=== PATIENT | male | born 1940 | race Two or more races ===

== ENCOUNTER 2023-05-07 10:38 | Inpatient (IN) | payer MEDICARE, OTHER ==
[~2023-05-07] VITALS: Ht 162.6 cm; Wt 73.5 kg
[2023-05-07 11:27] LABS: Basophils # (auto) 0.1 10 ^3/uL (0-0.2); Basophils % (auto) 1.3 % (0.0-2.0); Eosinophils # (auto) 0.2 10 ^3/uL (0-0.8); Eosinophils % (auto) 4.7 % (0.0-7.0); Hematocrit 32.1 % (41.0-53.0); Hemoglobin 10.5 g/dL (13.5-17.5); Lymphocytes # (auto) 0.6 10 ^3/uL (0.4-5.4); Lymphocytes % (auto) 11.1 % (10.0-50.0); Mean Corpuscular Hemoglobin 32.3 pg (28.0-32.0); Mean Corpuscular Hgb Conc. 32.6 g/dL (32.0-36.0); Monocytes # (auto) 0.6 10 ^3/uL (0-1.3); Monocytes % (auto) 11.3 % (0.0-12.0); Neutrophils # (auto) 3.7 10 ^3/uL (1.6-8.6); Neutrophils % (auto) 71.6 % (37.0-80.0); Nucleated Red Blood Cells % 0.3 %; Red Blood Cells 3.25 10^6/uL (4.5-5.90); Red Cell Distribution Width 18.6 % (11.8-14.3); White Blood Cell 5.2 10^3/uL (4.4-10.8)
[2023-05-07 11:43] LABS: Alanine Aminotransferase 20 U/L (7-40); Albumin 3.5 g/dL (3.2-4.8); Alkaline Phosphatase 282 U/L (46-116); Anion Gap 6.7 (5-15); Aspartate Aminotransferase 26 U/L (13-40); BUN/Creatinine Ratio 7.5 (10.0-20.0); Blood Urea Nitrogen 38 mg/dL (9-23); Calcium 8.6 mg/dL (8.7-10.4); Carbon Dioxide 33.3 mmol/L (20-30); Chloride 95 mmol/L (98-107); Glucose 122 mg/dL (74-106); Sodium 135 mmol/L (136-145)
[2023-05-07 11:44] LABS: Bilirubin, Total 1.1 mg/dL (0.2-1.0); Total Protein 8.1 g/dL (5.7-8.2)
[2023-05-07] MEDS ORDERED: NITROGLYCERIN 0.4 MG SL TAB SL PRN (15:45)
[2023-05-07] MEDS ORDERED: MORPHINE SULFATE 4 MG/ML SYR/VIAL IV PRN (15:45)
[2023-05-07] MEDS ORDERED: ONDANSETRON HCL 4 MG/2 ML VIAL IV PRN ×2 (15:45)
[2023-05-07] MEDS ORDERED: DOCUSATE SOD 100 MG CAP PO PRN (15:45)
[2023-05-07 16:53] LABS: INR 1.26 (0.9-1.15)
[2023-05-07 18:03] LABS: Blood Alcohol < 3.0 mg/dL (<10)
[2023-05-07 18:33] LABS: Triglycerides 71 mg/dL (< 150)
[2023-05-07 18:34] LABS: LDL Cholesterol 74 mg/dL (< 100)
[2023-05-07 18:35] LABS: HDL Cholesterol 65 mg/dL (40-59)
[2023-05-07 19:03] LABS: Cholesterol 153 mg/dL (< 200)
[2023-05-07 20:20] VITALS: PULSE 78; RESP 18; O2SAT 97
[2023-05-07] MEDS: FUROSEMIDE 20 MG/2 ML VIAL IV SCH (21:36)
[2023-05-07] MEDS: ATORVASTATIN 20 MG TAB PO SCH (22:00)
[2023-05-07] MEDS ORDERED: METOPROLOL TARTRATE 25 MG TAB PO SCH (22:00)
[2023-05-07] MEDS: MORPHINE SULFATE INJ 2 MG/ml SYRG IV PRN (23:51)
[2023-05-08 06:07] LABS: Basophils # (auto) 0.1 10 ^3/uL (0-0.2); Eosinophils # (auto) 0.3 10 ^3/uL (0-0.8); Eosinophils % (auto) 6.1 % (0.0-7.0); Hematocrit 29.3 % (41.0-53.0); Hemoglobin 9.6 g/dL (13.5-17.5); Lymphocytes # (auto) 0.7 10 ^3/uL (0.4-5.4); Lymphocytes % (auto) 11.4 % (10.0-50.0); Mean Corpuscular Hemoglobin 32.6 pg (28.0-32.0); Mean Corpuscular Volume 98.8 fL (80.0-100.0); Monocytes % (auto) 17.4 % (0.0-12.0); Neutrophils # (auto) 3.7 10 ^3/uL (1.6-8.6); Neutrophils % (auto) 64.1 % (37.0-80.0); Red Blood Cells 2.96 10^6/uL (4.5-5.90); Red Cell Distribution Width 18.8 % (11.8-14.3); White Blood Cell 5.7 10^3/uL (4.4-10.8)
[2023-05-08 06:25] LABS: Alanine Aminotransferase 24 U/L (7-40); Albumin 3.2 g/dL (3.2-4.8); Alkaline Phosphatase 298 U/L (46-116); Aspartate Aminotransferase 31 U/L (13-40); BUN/Creatinine Ratio 8.9 (10.0-20.0); Calcium 8.4 mg/dL (8.7-10.4); Chloride 98 mmol/L (98-107); Glucose 90 mg/dL (74-106); Potassium 4.5 mmol/L (3.5-5.1); Sodium 137 mmol/L (136-145)
[2023-05-08 06:26] LABS: Bilirubin, Total 0.8 mg/dL (0.2-1.0); Total Protein 7.7 g/dL (5.7-8.2)
[2023-05-08 06:29] LABS: Blood Urea Nitrogen 53 mg/dL (9-23)
[2023-05-08 06:39] LABS: Amphetamine Screen, Urine Neg (NEGATIVE); Urine Bacteria NONE SEEN /hpf (None Seen); Urine Blood 1+ /uL (Negative); Urine Clarity CLOUDY (Clear); Urine Color Yellow (Yellow); Urine Mucus FEW (None Seen); Urine Protein, UAD 2+ (Negative); Urine Specific Gravity 1.014 (1.001-1.035); Urine WBC 211 /hpf (0 - 3); Urine WBC Clumps PRESENT /hpf (None Seen); Urine pH 8.5 (5.0-8.0)
[2023-05-08 06:40] LABS: Barbiturate Scree,Urine Neg (NEGATIVE); Benzodiazephine Screen, Urine Neg (NEGATIVE); Cannabinoid Screen, Urine Neg (NEGATIVE); Cocaine Screen, Urine Neg (NEGATIVE); Opiate Scree,Urine Neg (NEGATIVE); Phencyclidine Screen, Urine Neg (NEGATIVE)
[2023-05-08] MEDS: FUROSEMIDE 20 MG/2 ML VIAL IV SCH ×2 (06:58→17:30)
[2023-05-08 07:52] VITALS: PULSE 61; RESP 10; O2SAT 98
[2023-05-08 07:56] LABS: COVID19 ANTIGEN SOFIA FIA NEGATIVE (NEGATIVE)
[2023-05-08] MEDS ORDERED: DOCUSATE SOD 100 MG CAP PO SCH (10:00)
[2023-05-08] MEDS: ASPirin 81 mg TAB PO SCH ×2 (10:22→10:39)
[2023-05-08] MEDS ORDERED: ETOMIDATE (2MG/ML) 20ML VIAL IV ONE (10:30)
[2023-05-08] MEDS ORDERED: MIDAZOLAM DRIP 50 mg/50mL 50 ML IV SCH (10:30)
[2023-05-08] MEDS ORDERED: SUCCINYLCHOLINE CHLORIDE 20 MG/ML 10ML VIAL IV ONE (10:30)
[2023-05-08 10:46] LABS: Base Excess 6.5 mmol/L (-2.0-2.0)
[2023-05-08 15:41] LABS: Protein, Urine 215.3 mg/dL (0.0-11.9)
[2023-05-08 15:44] LABS: Creatinine, Urine 69.37 mg/dL (30.0-125.0)
[2023-05-08] MEDS ORDERED: SODIUM CHL 0.9% 1000 ML BAG XX ONE (16:15)
[2023-05-08] MEDS ORDERED: FAMOTIDINE (10MG/ML) 2ML VL IV ONE (16:30)
[2023-05-08] MEDS ORDERED: cefTRIAXone 1GM/50ML D5W 50 ML IV ONE (16:30)
[2023-05-08 17:00] VITALS: BP 124/68; PULSE 67; RESP 18; TEMP 97.6; O2SAT 96
[2023-05-08 17:07] VITALS: PULSE 68; O2SAT 99
[2023-05-08 20:00] VITALS: PULSE 71
[2023-05-08] MEDS: SACUBITRIL-VALSARTAN 24mg/26mg TAB PO SCH (21:34)
[2023-05-08 22:00] VITALS: BP 115/49; PULSE 69; RESP 16; TEMP 98.1; O2SAT 100
[2023-05-08 22:16] LABS: Rapid Influenza A Negative (Negative); Rapid Influenza B Negative (Negative)
[2023-05-08] MEDS: ATORVASTATIN 20 MG TAB PO SCH (22:18)
[2023-05-09 05:00] VITALS: BP 107/49; PULSE 74; RESP 17; TEMP 98.4; O2SAT 90
[2023-05-09] MEDS: FUROSEMIDE 20 MG/2 ML VIAL IV SCH (06:00)
[2023-05-09 06:04] LABS: Basophils # (auto) 0.1 10 ^3/uL (0-0.2); Eosinophils # (auto) 0.3 10 ^3/uL (0-0.8); Eosinophils % (auto) 4.7 % (0.0-7.0); Hematocrit 28.8 % (41.0-53.0); Hemoglobin 9.4 g/dL (13.5-17.5); Lymphocytes # (auto) 0.5 10 ^3/uL (0.4-5.4); Lymphocytes % (auto) 8.4 % (10.0-50.0); Mean Corpuscular Hemoglobin 32.9 pg (28.0-32.0); Mean Corpuscular Hgb Conc. 32.7 g/dL (32.0-36.0); Mean Corpuscular Volume 100.7 fL (80.0-100.0); Monocytes # (auto) 0.7 10 ^3/uL (0-1.3); Monocytes % (auto) 10.9 % (0.0-12.0); Neutrophils # (auto) 4.6 10 ^3/uL (1.6-8.6); Nucleated Red Blood Cells % 0.1 %; Red Blood Cells 2.86 10^6/uL (4.5-5.90); White Blood Cell 6.1 10^3/uL (4.4-10.8)
[2023-05-09 06:16] LABS: Alanine Aminotransferase 20 U/L (7-40); Albumin 3.1 g/dL (3.2-4.8); Alkaline Phosphatase 265 U/L (46-116); Anion Gap 8.2 (5-15); Aspartate Aminotransferase 25 U/L (13-40); BUN/Creatinine Ratio 9.2 (10.0-20.0); Blood Urea Nitrogen 51 mg/dL (9-23); Calcium 8.5 mg/dL (8.5-10.1); Carbon Dioxide 30.8 mmol/L (20-30); Chloride 99 mmol/L (98-107); Glucose 92 mg/dL (74-106); Magnesium 1.8 mg/dL (1.6-2.6); Potassium 4.4 mmol/L (3.5-5.1); Sodium 138 mmol/L (136-145); Uric Acid 5.8 mg/dL (3.7-9.2)
[2023-05-09 06:17] LABS: Bilirubin, Total 0.8 mg/dL (0.2-1.0); Phosphorus 4.6 mg/dL (2.4-5.1); Total Protein 7.5 g/dL (5.7-8.2)
[2023-05-09 08:00] VITALS: BP 102/43; PULSE 66; PULSE 73; RESP 18; TEMP 98.1; O2SAT 93
[2023-05-09] MEDS: SACUBITRIL-VALSARTAN 24mg/26mg TAB PO SCH ×2 (09:44→22:06)
[2023-05-09] MEDS: B-COMPLEX W/ C & FOLIC ACID(NEPHROVITE TAB) PO SCH (09:44)
[2023-05-09] MEDS: cefTRIAXone 1GM/50ML D5W 50 ML IV SCH (09:44)
[2023-05-09] MEDS: ASPirin 81 mg TAB PO SCH (09:44)
[2023-05-09 12:00] VITALS: BP 110/57; PULSE 72; RESP 18; TEMP 97.8; O2SAT 100
[2023-05-09 16:00] VITALS: BP 107/53; PULSE 68; RESP 24; TEMP 97.9; O2SAT 100
[2023-05-09] MEDS: MORPHINE SULFATE INJ 2 MG/ml SYRG IV PRN ×2 (17:08→22:14)
[2023-05-09 20:00] VITALS: BP 102/43; PULSE 73; RESP 16; RESP 18; TEMP 98.1; O2SAT 95
[2023-05-09 22:00] VITALS: BP 120/60; PULSE 69; RESP 16; TEMP 97.6; O2SAT 98
[2023-05-09] MEDS: ATORVASTATIN 20 MG TAB PO SCH (22:06)
[2023-05-10] VITALS (10 sets, daily range): BP systolic 97–117; BP diastolic 47–66; PULSE 63–74; RESP 14–20; TEMP 97.4–98.3; O2SAT 90–100
[2023-05-10] MEDS ORDERED: SODIUM CHL 0.9% 1000 ML BAG XX ONE (07:00)
[2023-05-10 07:32] LABS: Basophils # (auto) 0.1 10 ^3/uL (0-0.2); Eosinophils # (auto) 0.3 10 ^3/uL (0-0.8); Eosinophils % (auto) 5.6 % (0.0-7.0); Hematocrit 26.8 % (41.0-53.0); Lymphocytes # (auto) 0.7 10 ^3/uL (0.4-5.4); Lymphocytes % (auto) 11.8 % (10.0-50.0); Mean Corpuscular Hemoglobin 32.9 pg (28.0-32.0); Mean Corpuscular Hgb Conc. 33.6 g/dL (32.0-36.0); Monocytes # (auto) 0.9 10 ^3/uL (0-1.3); Monocytes % (auto) 14.2 % (0.0-12.0); Neutrophils # (auto) 4.1 10 ^3/uL (1.6-8.6); Neutrophils % (auto) 67.4 % (37.0-80.0); Nucleated Red Blood Cells % 0.1 %; Red Blood Cells 2.73 10^6/uL (4.5-5.90); Red Cell Distribution Width 17.6 % (11.8-14.3); White Blood Cell 6.1 10^3/uL (4.4-10.8)
[2023-05-10 08:02] LABS: Alanine Aminotransferase 16 U/L (7-40); Albumin 2.9 g/dL (3.2-4.8); Alkaline Phosphatase 267 U/L (46-116); Aspartate Aminotransferase 22 U/L (13-40); BUN/Creatinine Ratio 7.6 (10.0-20.0); Bilirubin, Total 0.6 mg/dL (0.2-1.0); Blood Urea Nitrogen 53 mg/dL (9-23); Chloride 100 mmol/L (98-107); Glucose 93 mg/dL (74-106); Potassium 4.3 mmol/L (3.5-5.1); Sodium 138 mmol/L (136-145); Total Protein 7.1 g/dL (5.7-8.2)
[2023-05-10] MEDS: SACUBITRIL-VALSARTAN 24mg/26mg TAB PO SCH ×2 (13:09→21:56)
[2023-05-10] MEDS: ASPirin 81 mg TAB PO SCH (13:09)
[2023-05-10] MEDS: ACETAMINOPHEN 325 MG TAB PO PRN (13:09)
[2023-05-10] MEDS: B-COMPLEX W/ C & FOLIC ACID(NEPHROVITE TAB) PO SCH (13:09)
[2023-05-10] MEDS: cefTRIAXone 1GM/50ML D5W 50 ML IV SCH (13:10)
[2023-05-10] MEDS: FAMOTIDINE (10MG/ML) 2ML VL IV SCH (16:49)
[2023-05-10] MEDS: MORPHINE SULFATE INJ 2 MG/ml SYRG IV PRN (16:50)
[2023-05-10] MEDS ORDERED: EPOETIN ALFA-EPBX 10,000 UNIT/1ML VIAL SC ONE (21:00)
[2023-05-10] MEDS: ATORVASTATIN 20 MG TAB PO SCH (21:02)
[2023-05-11 05:00] VITALS: BP 102/49; PULSE 71; RESP 19; TEMP 97.6; O2SAT 92
[2023-05-11 06:58] LABS: Basophils # (auto) 0.1 10 ^3/uL (0-0.2); Basophils % (auto) 1.5 % (0.0-2.0); Eosinophils # (auto) 0.4 10 ^3/uL (0-0.8); Eosinophils % (auto) 7.1 % (0.0-7.0); Hematocrit 29.7 % (41.0-53.0); Hemoglobin 9.8 g/dL (13.5-17.5); Lymphocytes # (auto) 0.6 10 ^3/uL (0.4-5.4); Lymphocytes % (auto) 11.7 % (10.0-50.0); Mean Corpuscular Hemoglobin 32.6 pg (28.0-32.0); Mean Corpuscular Hgb Conc. 33.1 g/dL (32.0-36.0); Mean Corpuscular Volume 98.2 fL (80.0-100.0); Monocytes # (auto) 0.7 10 ^3/uL (0-1.3); Monocytes % (auto) 13.9 % (0.0-12.0); Neutrophils # (auto) 3.4 10 ^3/uL (1.6-8.6); Neutrophils % (auto) 65.8 % (37.0-80.0); Nucleated Red Blood Cells % 0.1 %; Red Blood Cells 3.02 10^6/uL (4.5-5.90); Red Cell Distribution Width 17.1 % (11.8-14.3); White Blood Cell 5.2 10^3/uL (4.4-10.8)
[2023-05-11 07:32] LABS: Alanine Aminotransferase 16 U/L (7-40); Albumin 2.8 g/dL (3.2-4.8); Alkaline Phosphatase 251 U/L (46-116); Anion Gap 3.2 (5-15); Aspartate Aminotransferase 19 U/L (13-40); BUN/Creatinine Ratio 8.8 (10.0-20.0); Blood Urea Nitrogen 45 mg/dL (9-23); Calcium 7.9 mg/dL (8.7-10.4); Carbon Dioxide 30.8 mmol/L (20-30); Chloride 104 mmol/L (98-107); Glucose 85 mg/dL (74-106); Magnesium 1.8 mg/dL (1.6-2.6); Potassium 4.4 mmol/L (3.5-5.1); Sodium 138 mmol/L (136-145)
[2023-05-11 07:33] LABS: Bilirubin, Total 0.7 mg/dL (0.2-1.0)
[2023-05-11] MEDS: ACETAMINOPHEN 325 MG TAB PO PRN ×2 (07:33→17:21)
[2023-05-11 08:00] VITALS: BP 99/60; PULSE 69; PULSE 72; PULSE 73; RESP 12; RESP 18; TEMP 98.2; O2SAT 93; O2SAT 97
[2023-05-11] MEDS ORDERED: MEROPENEM 500MG IVPB 50 ML IV ONE (08:00)
[2023-05-11] MEDS: SACUBITRIL-VALSARTAN 24mg/26mg TAB PO SCH ×2 (09:00→22:05)
[2023-05-11] MEDS: B-COMPLEX W/ C & FOLIC ACID(NEPHROVITE TAB) PO SCH (09:00)
[2023-05-11] MEDS: ASPirin 81 mg TAB PO SCH (09:00)
[2023-05-11 11:08] LABS: Hepatitis B Surface Antigen Negative (Negative)
[2023-05-11 11:31] LABS: Hepatitis C Antibody Negative (Negative)
[2023-05-11 12:00] VITALS: BP 111/56; PULSE 80; RESP 18; TEMP 97.8; O2SAT 100
[2023-05-11] MEDS ORDERED: FUROSEMIDE 20 MG/2 ML VIAL IV SCH (13:30)
[2023-05-11 16:00] VITALS: BP 146/59; PULSE 80; RESP 22; TEMP 98.3; O2SAT 95
[2023-05-11 20:00] VITALS: PULSE 79
[2023-05-11 22:00] VITALS: BP 138/50; PULSE 75; RESP 19; TEMP 97.5; O2SAT 98
[2023-05-11] MEDS: ATORVASTATIN 20 MG TAB PO SCH (22:06)
[2023-05-12] MEDS: ACETAMINOPHEN 325 MG TAB PO PRN (01:57)
[2023-05-12 05:00] VITALS: BP 121/61; PULSE 69; RESP 19; TEMP 97.6; O2SAT 97
[2023-05-12 05:55] LABS: Basophils # (auto) 0.1 10 ^3/uL (0-0.2); Basophils % (auto) 1.4 % (0.0-2.0); Eosinophils # (auto) 0.4 10 ^3/uL (0-0.8); Hematocrit 30.6 % (41.0-53.0); Lymphocytes # (auto) 0.7 10 ^3/uL (0.4-5.4); Lymphocytes % (auto) 15.8 % (10.0-50.0); Mean Corpuscular Hemoglobin 32.3 pg (28.0-32.0); Mean Corpuscular Hgb Conc. 32.7 g/dL (32.0-36.0); Monocytes # (auto) 0.6 10 ^3/uL (0-1.3); Monocytes % (auto) 14.3 % (0.0-12.0); Neutrophils # (auto) 2.5 10 ^3/uL (1.6-8.6); Neutrophils % (auto) 58.5 % (37.0-80.0); Red Cell Distribution Width 17.9 % (11.8-14.3); White Blood Cell 4.3 10^3/uL (4.4-10.8)
[2023-05-12 06:11] LABS: Alanine Aminotransferase 18 U/L (7-40); Albumin 2.8 g/dL (3.2-4.8); Alkaline Phosphatase 260 U/L (46-116); Anion Gap 9.2 (5-15); Aspartate Aminotransferase 22 U/L (13-40); BUN/Creatinine Ratio 8.6 (10.0-20.0); Bilirubin, Total 0.5 mg/dL (0.2-1.0); Calcium 8.1 mg/dL (8.5-10.1); Carbon Dioxide 28.8 mmol/L (20-30); Chloride 104 mmol/L (98-107); Glucose 102 mg/dL (74-106); Magnesium 1.8 mg/dL (1.6-2.6); Potassium 4.5 mmol/L (3.5-5.1); Sodium 142 mmol/L (136-145)
[2023-05-12 06:16] LABS: Blood Urea Nitrogen 55 mg/dL (9-23)
[2023-05-12] MEDS ORDERED: SODIUM CHL 0.9% 1000 ML BAG XX ONE (07:00)
[2023-05-12 08:00] VITALS: BP 145/67; PULSE 71; PULSE 73; RESP 21; TEMP 97.5; O2SAT 96
[2023-05-12] MEDS ORDERED: FUROSEMIDE 20 MG/2 ML VIAL IV SCH (10:00)
[2023-05-12] MEDS ORDERED: ERTAPENEM SOD INJ 0.5 GM in SODIUM CHL 0.9% 50 ML IV SCH (10:00)
[2023-05-12] MEDS ORDERED: MEROPENEM 500MG IVPB 50 ML IV SCH (10:00)
[2023-05-12 12:00] VITALS: BP 173/65; PULSE 64; RESP 21; TEMP 97.4; O2SAT 100
[2023-05-12] MEDS: ASPirin 81 mg TAB PO SCH (12:48)
[2023-05-12] MEDS: B-COMPLEX W/ C & FOLIC ACID(NEPHROVITE TAB) PO SCH (12:48)
[2023-05-12] MEDS: SACUBITRIL-VALSARTAN 24mg/26mg TAB PO SCH (12:48)
[2023-05-12] MEDS: FAMOTIDINE (10MG/ML) 2ML VL IV SCH (12:49)
[2023-05-12 16:00] VITALS: BP 142/61; PULSE 82; RESP 20; TEMP 97.5; O2SAT 96
== END 2023-05-12 16:15 | disposition home health service (06) | DRG 280 ==
LOC: ER 10:38 → EDBD 10:38 → TELE 15:57 → TELE-EAST 05-08 17:27
PROVIDERS: ADMIT Internal Medicine; ATTEND Student in an Organized Health Care Education/Training Program
PROC: 5A1D70Z Performance of Urinary Filtration, Intermittent, Less than 6 Hours Per Day (ICD-10-PCS; principal; 2023-05-08)
PROC: 5A1D70Z Performance of Urinary Filtration, Intermittent, Less than 6 Hours Per Day (ICD-10-PCS; 2023-05-10)
PROC: 05H933Z Insertion of Infusion Device into Right Brachial Vein, Percutaneous Approach (ICD-10-PCS; 2023-05-11)
PROC: B54MZZA Ultrasonography of Right Upper Extremity Veins, Guidance (ICD-10-PCS; 2023-05-11)
PROC: 5A1D70Z Performance of Urinary Filtration, Intermittent, Less than 6 Hours Per Day (ICD-10-PCS; 2023-05-12)
DX: I13.2 Hypertensive heart and chronic kidney disease with heart failure and with stage 5 chronic kidney disease, or end stage renal disease (principal); I21.A1 Myocardial infarction type 2; I50.23 Acute on chronic systolic (congestive) heart failure; N18.6 End stage renal disease; J96.21 Acute and chronic respiratory failure with hypoxia; J81.0 Acute pulmonary edema; G93.49 Other encephalopathy; N39.0 Urinary tract infection, site not specified; I42.0 Dilated cardiomyopathy; I44.0 Atrioventricular block, first degree; D69.6 Thrombocytopenia, unspecified; E21.3 Hyperparathyroidism, unspecified; Z20.822 Contact with and (suspected) exposure to COVID-19; R47.81 Slurred speech; D63.1 Anemia in chronic kidney disease; F03.90 Unspecified dementia, unspecified severity, without behavioral disturbance, psychotic disturbance, mood disturbance, and anxiety; I20.9 Angina pectoris, unspecified; Z99.2 Dependence on renal dialysis; I25.2 Old myocardial infarction
CPT/HCPCS: 36415; 36600; 70450; 71045; 76775; 80053; 80061; 80307; 80320; 81001; 82306; 82570; 82805; 82962; 83036; 83605; 83735; 83880; 84100; 84156; 84300; 84443; 84484; 84550; 85025; 85610; 86803; 87086; 87088; 87186; 87340; 87426; 87804; 90935; 93005; 93306; 97163; 99291; G0378; J0696; J1335; J2185; J2405; J3490

== ENCOUNTER 2023-10-06 11:39 | Inpatient (IN) | payer MEDICARE, OTHER ==
[~2023-10-06] VITALS: Ht 177.8 cm; Wt 72.1 kg
[2023-10-06 12:33] LABS: Basophils # (auto) 0.1 10 ^3/uL (0-0.2); Basophils % (auto) 1.1 % (0.0-2.0); Eosinophils # (auto) 0.3 10 ^3/uL (0-0.8); Eosinophils % (auto) 4.6 % (0.0-7.0); Hematocrit 25.9 % (41.0-53.0); Hemoglobin 8.6 g/dL (13.5-17.5); Lymphocytes # (auto) 0.5 10 ^3/uL (0.4-5.4); Lymphocytes % (auto) 8.5 % (10.0-50.0); Mean Corpuscular Hemoglobin 32.9 pg (28.0-32.0); Mean Corpuscular Hgb Conc. 33.2 g/dL (32.0-36.0); Mean Corpuscular Volume 99.3 fL (80.0-100.0); Monocytes # (auto) 0.7 10 ^3/uL (0-1.3); Neutrophils # (auto) 4.4 10 ^3/uL (1.6-8.6); Neutrophils % (auto) 73.8 % (37.0-80.0); Red Blood Cells 2.61 10^6/uL (4.5-5.90); Red Cell Distribution Width 19.2 % (11.8-14.3); White Blood Cell 5.9 10^3/uL (4.4-10.8)
[2023-10-06 12:48] LABS: Alanine Aminotransferase 23 U/L (7-40); Albumin 3.5 g/dL (3.2-4.8); Alkaline Phosphatase 329 U/L (46-116); Anion Gap 6 (5-15); Aspartate Aminotransferase 37 U/L (13-40); BUN/Creatinine Ratio 8.8 (10.0-20.0); Blood Urea Nitrogen 43 mg/dL (9-23); Calcium 8.8 mg/dL (8.5-10.1); Carbon Dioxide 32 mmol/L (20-30); Chloride 96 mmol/L (98-107); Glucose 125 mg/dL (74-106); Potassium 4.8 mmol/L (3.5-5.1); Sodium 134 mmol/L (136-145)
[2023-10-06 12:49] LABS: Bilirubin, Total 1.4 mg/dL (0.2-1.0); Total Protein 7.9 g/dL (5.7-8.2)
[2023-10-06 13:03] LABS: Lactic Acid w/Reflex 2.3 mmol/L (0.4-2.0)
[2023-10-06 13:32] LABS: Magnesium 1.8 mg/dL (1.6-2.6)
[2023-10-06] MEDS ORDERED: ENOXAPARIN SOD 30 MG/0.3 ML SYRINGE SC SCH (18:30)
[2023-10-06] MEDS ORDERED: MORPHINE SULFATE INJ 2 MG/ml SYRG IV PRN (18:30)
[2023-10-06] MEDS ORDERED: ONDANSETRON HCL 4 MG/2 ML VIAL IV PRN (18:30)
[2023-10-06] MEDS ORDERED: DOCUSATE SOD 100 MG CAP PO PRN (18:30)
[2023-10-06] MEDS ORDERED: FUROSEMIDE 40 MG/4 ML VIAL IV ONE (18:45)
[2023-10-06] MEDS: ACCU-CHEK COMFORT CURVE STRIP VI SCH (22:28)
[2023-10-06] MEDS: InsuLIN REG 1unit/0.01ml Soln (100units/ml) SC SCH (22:28)
[2023-10-06] MEDS: HYDROcodone-ACET 5/325MG TAB PO PRN (22:28)
[2023-10-07 05:10] LABS: Basophils # (auto) 0.1 10 ^3/uL (0-0.2); Basophils % (auto) 0.7 % (0.0-2.0); Eosinophils # (auto) 0.1 10 ^3/uL (0-0.8); Eosinophils % (auto) 0.7 % (0.0-7.0); Hematocrit 27.1 % (41.0-53.0); Hemoglobin 9.1 g/dL (13.5-17.5); Lymphocytes # (auto) 0.5 10 ^3/uL (0.4-5.4); Lymphocytes % (auto) 5.6 % (10.0-50.0); Mean Corpuscular Hemoglobin 33.2 pg (28.0-32.0); Mean Corpuscular Hgb Conc. 33.4 g/dL (32.0-36.0); Mean Corpuscular Volume 99.5 fL (80.0-100.0); Monocytes # (auto) 0.4 10 ^3/uL (0-1.3); Monocytes % (auto) 4.1 % (0.0-12.0); Neutrophils # (auto) 7.8 10 ^3/uL (1.6-8.6); Neutrophils % (auto) 88.9 % (37.0-80.0); Nucleated Red Blood Cells % 0.2 %; Red Blood Cells 2.73 10^6/uL (4.5-5.90); Red Cell Distribution Width 19.3 % (11.8-14.3); White Blood Cell 8.8 10^3/uL (4.4-10.8)
[2023-10-07 05:12] LABS: Alanine Aminotransferase 19 U/L (7-40); Albumin 3.5 g/dL (3.2-4.8); Alkaline Phosphatase 326 U/L (46-116); Anion Gap 8 (5-15); Aspartate Aminotransferase 35 U/L (13-40); BUN/Creatinine Ratio 7.5 (10.0-20.0); Bilirubin, Total 1.3 mg/dL (0.2-1.0); Blood Urea Nitrogen 44 mg/dL (9-23); Carbon Dioxide 30 mmol/L (20-30); Chloride 96 mmol/L (98-107); Glucose 82 mg/dL (74-106); Potassium 5.4 mmol/L (3.5-5.1); Sodium 134 mmol/L (136-145); Total Protein 8.2 g/dL (5.7-8.2)
[2023-10-07] MEDS: ACCU-CHEK COMFORT CURVE STRIP VI SCH ×4 (06:53→21:30)
[2023-10-07] MEDS: InsuLIN REG 1unit/0.01ml Soln (100units/ml) SC SCH ×4 (06:56→21:39)
[2023-10-07 08:00] VITALS: PULSE 73; RESP 17; O2SAT 95
[2023-10-07 09:52] LABS: INR 1.33 (0.9-1.15); Partial Thromboplastin Time 33.7 SEC (24.5-34.5); Prothrombin Time 13.7 sec (9.3-11.8)
[2023-10-07 10:27] LABS: Magnesium 1.9 mg/dL (1.6-2.6)
[2023-10-07] MEDS: NOREPINEPHRINE 8 MG/250ML KIT 250 ML IV SCH (13:29)
[2023-10-07] MEDS: IPRATROPIUM BROM 0.5 MG/2.5ML INH SOL NEB SCH ×2 (14:30→17:45)
[2023-10-07 14:46] VITALS: PULSE 76; RESP 20; O2SAT 96
[2023-10-07] MEDS: HYDROcodone-ACET 5/325MG TAB PO PRN (16:38)
[2023-10-07 18:15] LABS: Urine Epithelial Cast None Seen /hpf (<5)
[2023-10-07] MEDS: FUROSEMIDE 100 MG/10ML VIAL IV SCH (18:16)
[2023-10-07 18:41] LABS: Urine Bacteria MANY /hpf (None Seen); Urine Blood 1+ /uL (Negative); Urine Clarity HAZY (Clear); Urine Color Yellow (Yellow); Urine Mucus FEW (None Seen); Urine Protein, UAD 2+ (Negative); Urine Specific Gravity 1.014 (1.001-1.035); Urine WBC 132 /hpf (0 - 3)
[2023-10-07 18:55] LABS: Amphetamine Screen, Urine Neg (NEGATIVE); Barbiturate Scree,Urine Neg (NEGATIVE); Benzodiazephine Screen, Urine Neg (NEGATIVE); Cocaine Screen, Urine Neg (NEGATIVE); Opiate Scree,Urine Neg (NEGATIVE)
[2023-10-07 18:56] LABS: Cannabinoid Screen, Urine Neg (NEGATIVE); Phencyclidine Screen, Urine Neg (NEGATIVE)
[2023-10-07 19:30] VITALS: PULSE 71; RESP 19; O2SAT 99
[2023-10-07] MEDS: MEROPENEM 500MG IVPB 50 ML IV SCH (21:30)
[2023-10-07 21:39] LABS: Base Excess 3.9 mmol/L (-2.0-2.0)
[2023-10-07] MEDS ORDERED: MEROPENEM 1GM IVPB 50 ML IV SCH (22:00)
[2023-10-08] VITALS (89 sets, daily range): BP systolic 75–113; BP diastolic 31–58; PULSE 65–128; RESP 9–19; TEMP 98.2–99.2; O2SAT 84–100
[2023-10-08 04:55] LABS: Basophils # (auto) 0 10 ^3/uL (0-0.2); Basophils % (auto) 0.1 % (0.0-2.0); Eosinophils # (auto) 0 10 ^3/uL (0-0.8); Lymphocytes # (auto) 0.1 10 ^3/uL (0.4-5.4); Lymphocytes % (auto) 1.7 % (10.0-50.0); Monocytes # (auto) 0.2 10 ^3/uL (0-1.3); White Blood Cell 6.3 10^3/uL (4.4-10.8)
[2023-10-08 04:56] LABS: Hematocrit 24.8 % (41.0-53.0); Hemoglobin 8.3 g/dL (13.5-17.5); Mean Corpuscular Hemoglobin 32.9 pg (28.0-32.0); Mean Corpuscular Hgb Conc. 33.6 g/dL (32.0-36.0); Mean Corpuscular Volume 97.8 fL (80.0-100.0); Neutrophils % (auto) 95.2 % (37.0-80.0); Red Blood Cells 2.54 10^6/uL (4.5-5.90); Red Cell Distribution Width 18.6 % (11.8-14.3)
[2023-10-08 05:12] LABS: Alanine Aminotransferase 27 U/L (7-40); Alkaline Phosphatase 246 U/L (46-116); Anion Gap 8 (5-15); Aspartate Aminotransferase 69 U/L (13-40); BUN/Creatinine Ratio 8.5 (10.0-20.0); Bilirubin, Total 2.4 mg/dL (0.2-1.0); Calcium 8.5 mg/dL (8.7-10.4); Carbon Dioxide 28 mmol/L (20-30); Chloride 98 mmol/L (98-107); Glucose 69 mg/dL (74-106); Magnesium 1.7 mg/dL (1.6-2.6); Potassium 5.2 mmol/L (3.5-5.1); Sodium 134 mmol/L (136-145); Total Protein 7.3 g/dL (5.7-8.2)
[2023-10-08 05:18] LABS: Blood Urea Nitrogen 63 mg/dL (9-23)
[2023-10-08] MEDS: FUROSEMIDE 100 MG/10ML VIAL IV SCH ×2 (05:39→18:10)
[2023-10-08] MEDS: ACCU-CHEK COMFORT CURVE STRIP VI SCH ×4 (05:39→21:46)
[2023-10-08] MEDS: InsuLIN REG 1unit/0.01ml Soln (100units/ml) SC SCH ×4 (05:39→21:48)
[2023-10-08 05:40] LABS: CRP High Sensitivity 15.17 mg/dL (<1.0)
[2023-10-08] MEDS: IPRATROPIUM BROM 0.5 MG/2.5ML INH SOL NEB SCH ×3 (05:45→18:32)
[2023-10-08] MEDS: DEXTROSE (50%) 50ML SYRG IV PRN ×2 (07:20→18:14)
[2023-10-08] MEDS ORDERED: SODIUM CHL 0.9% 1000 ML BAG XX ONE ×2 (10:00→14:45)
[2023-10-08] MEDS: NOREPINEPHRINE 8 MG/250ML KIT 250 ML IV SCH ×2 (10:01→23:20)
[2023-10-08] MEDS: ALBUTEROL SULF 2.5 MG/0.5ML(0.5%) NEB SOLN NEB PRN ×2 (11:16→18:32)
[2023-10-08 11:40] LABS: Hepatitis B Surface Antigen Negative (Negative)
[2023-10-08 12:00] LABS: Hepatitis A Ab IgM Negative
[2023-10-08 12:01] LABS: Hepatitis B Core IgM Negative; Hepatitis C Antibody Negative (Negative)
[2023-10-08 13:10] LABS: Hemoglobin 7.9 g/dL (13.5-17.5)
[2023-10-08 13:12] LABS: Hematocrit 24.1 % (41.0-53.0)
[2023-10-08] MEDS: MORPHINE SULFATE INJ 2 MG/ml SYRG IV PRN ×2 (14:00→20:18)
[2023-10-08] MEDS ORDERED: EPOETIN ALFA-EPBX 10,000 UNIT/1ML VIAL SC ONE (21:00)
[2023-10-08] MEDS: MEROPENEM 500MG IVPB 50 ML IV SCH (21:42)
[2023-10-08] MEDS ORDERED: LINEZOLID 600MG/300ML 300 ML IV SCH (22:00)
[2023-10-08] MEDS ORDERED: DEXTROSE 10% 250 ML IV ONE (22:30)
[2023-10-09] VITALS (106 sets, daily range): BP systolic 82–135; BP diastolic 25–74; PULSE 62–167; RESP 8–21; TEMP 97.7–98.3; O2SAT 78–100
[2023-10-09] MEDS ORDERED: NOREPINEPHRINE BITARTRATE 4 ML IV ONE ×2 (03:13→03:14)
[2023-10-09] MEDS: VASOPRESSIN 20 UNITS in SODIUM CHL 0.9% 99 ML IV SCH ×3 (03:22→14:52)
[2023-10-09 04:20] LABS: Basophils # (auto) 0 10 ^3/uL (0-0.2); Hemoglobin 7.1 g/dL (13.5-17.5); Nucleated Red Blood Cells % 0.1 %; Red Blood Cells 2.25 10^6/uL (4.5-5.90)
[2023-10-09 04:22] LABS: Basophils % (auto) 0.1 % (0.0-2.0); Eosinophils # (auto) 0 10 ^3/uL (0-0.8); Hematocrit 21.8 % (41.0-53.0); Lymphocytes # (auto) 0.6 10 ^3/uL (0.4-5.4); Lymphocytes % (auto) 4.2 % (10.0-50.0); Mean Corpuscular Hemoglobin 31.7 pg (28.0-32.0); Mean Corpuscular Hgb Conc. 32.7 g/dL (32.0-36.0); Monocytes # (auto) 0.9 10 ^3/uL (0-1.3); Monocytes % (auto) 6.1 % (0.0-12.0); Neutrophils # (auto) 13.1 10 ^3/uL (1.6-8.6); Neutrophils % (auto) 89.6 % (37.0-80.0); Red Cell Distribution Width 18.7 % (11.8-14.3); White Blood Cell 14.7 10^3/uL (4.4-10.8)
[2023-10-09 04:36] LABS: Alanine Aminotransferase 26 U/L (7-40); Alkaline Phosphatase 157 U/L (46-116); Anion Gap 8 (5-15); Aspartate Aminotransferase 77 U/L (13-40); BUN/Creatinine Ratio 10.1 (10.0-20.0); Calcium 8.1 mg/dL (8.5-10.1); Carbon Dioxide 28 mmol/L (20-30); Chloride 98 mmol/L (98-107); Glucose 85 mg/dL (74-106); Sodium 134 mmol/L (136-145)
[2023-10-09 04:37] LABS: Albumin 2.8 g/dL (3.2-4.8); Bilirubin, Total 2.4 mg/dL (0.2-1.0); Total Protein 6.8 g/dL (5.7-8.2)
[2023-10-09 04:45] LABS: CRP High Sensitivity 19.27 mg/dL (<1.0)
[2023-10-09] MEDS: NOREPINEPHRINE BITARTRATE 32 MG in SODIUM CHL 0.9% 218 ML IV SCH (04:47)
[2023-10-09 04:57] LABS: Lactic Acid w/Reflex 2.5 mmol/L (0.4-2.0)
[2023-10-09 05:12] LABS: Blood Urea Nitrogen 77 mg/dL (9-23)
[2023-10-09 05:14] LABS: Potassium 6.8 mmol/L (3.5-5.1)
[2023-10-09] MEDS ORDERED: CALCIUM GLUC 1,000mg/50ml-NS 50 ML IV ONE (05:45)
[2023-10-09] MEDS ORDERED: SODIUM ZIRCONIUM CYCL 10 GM PAK PO ONE (05:45)
[2023-10-09] MEDS ORDERED: DEXTROSE (50%) 50ML SYRG IV ONE (05:45)
[2023-10-09] MEDS ORDERED: InsuLIN REG 1unit/0.01ml Soln (100units/ml) IV ONE (05:45)
[2023-10-09 05:53] LABS: Magnesium 1.8 mg/dL (1.6-2.6)
[2023-10-09] MEDS: InsuLIN REG 1unit/0.01ml Soln (100units/ml) SC SCH ×4 (05:57→21:40)
[2023-10-09] MEDS: ACCU-CHEK COMFORT CURVE STRIP VI SCH ×4 (05:57→21:37)
[2023-10-09] MEDS: FUROSEMIDE 100 MG/10ML VIAL IV SCH ×2 (05:57→18:15)
[2023-10-09] MEDS: IPRATROPIUM BROM 0.5 MG/2.5ML INH SOL NEB SCH ×3 (06:48→20:31)
[2023-10-09] MEDS ORDERED: SODIUM CHL 0.9% 1000 ML BAG XX ONE (07:30)
[2023-10-09] MEDS ORDERED: ADENOSINE 6 MG/2 ML INJ IV ONE ×2 (07:41→07:45)
[2023-10-09] MEDS ORDERED: AMIODARONE BOLUS KIT 100 ML IV ONE (07:41)
[2023-10-09] MEDS ORDERED: AMIODARONE HCL (50 MG/ ML) 3 ML VIAL IV ONE (07:49)
[2023-10-09 07:52] LABS: Hematocrit 20.4 % (41.0-53.0)
[2023-10-09 07:59] LABS: Hemoglobin 6.8 g/dL (13.5-17.5)
[2023-10-09] MEDS ORDERED: AMIODARONE 450mg/250ml AE 250 ML IV SCH (08:00)
[2023-10-09] MEDS ORDERED: AMIODARONE 450mg/250ml AE 250 ML IV ONE (08:00)
[2023-10-09] MEDS ORDERED: MIDAZOLAM HCL 2MG/2ML 2ml VIAL (1mg/ml) ONE (08:26)
[2023-10-09] MEDS ORDERED: fentaNYL CITRATE 100 MCG/2 ML VL ONE (08:26)
[2023-10-09] MEDS ORDERED: MIDAZOLAM HCL 2MG/2ML 2ml VIAL (1mg/ml) IV ONE (08:30)
[2023-10-09] MEDS ORDERED: fentaNYL CITRATE 100 MCG/2 ML VL IV ONE (08:30)
[2023-10-09] MEDS: PHENYLEPHRINE INJ 80 MG in SODIUM CHL 0.9% 242 ML IV SCH (08:45)
[2023-10-09] MEDS ORDERED: fentaNYL CITRATE 100 MCG/2 ML VL IM ONE (08:45)
[2023-10-09] MEDS ORDERED: MIDAZOLAM HCL 2MG/2ML 2ml VIAL (1mg/ml) IM ONE (08:45)
[2023-10-09] MEDS ORDERED: VANCOMYCIN PER PHARMACY 0 MG IV SCH (11:15)
[2023-10-09] MEDS ORDERED: ATROPINE SULFATE 1 MG/1 ML VIAL ONE (11:26)
[2023-10-09] MEDS ORDERED: VANCOMYCIN 1GM/200ML 200 ML IV ONE (11:45)
[2023-10-09] MEDS: AMIODARONE 450mg/250ml AE 250 ML IV SCH (14:00)
[2023-10-09] MEDS: IRON SUCROSE COMPLEX 100 ML IV SCH (15:12)
[2023-10-09] MEDS: MORPHINE SULFATE INJ 2 MG/ml SYRG IV PRN ×2 (17:02→22:58)
[2023-10-09] MEDS: ALBUTEROL SULF 2.5 MG/0.5ML(0.5%) NEB SOLN NEB PRN (20:31)
[2023-10-09] MEDS ORDERED: EPOETIN ALFA-EPBX 10,000 UNIT/1ML VIAL SC ONE (21:00)
[2023-10-09] MEDS: MEROPENEM 500MG IVPB 50 ML IV SCH (21:37)
[2023-10-10] VITALS (108 sets, daily range): BP systolic 88–130; BP diastolic 46–89; PULSE 94–113; RESP 8–24; TEMP 98–99.4; O2SAT 93–100
[2023-10-10] MEDS: ALBUTEROL SULF 2.5 MG/0.5ML(0.5%) NEB SOLN NEB PRN ×4 (02:15→19:18)
[2023-10-10] MEDS: VASOPRESSIN 20 UNITS in SODIUM CHL 0.9% 99 ML IV SCH ×2 (02:21→13:28)
[2023-10-10] MEDS: MORPHINE SULFATE INJ 2 MG/ml SYRG IV PRN ×3 (03:08→23:45)
[2023-10-10 03:42] LABS: Base Excess 4.1 mmol/L (-2.0-2.0)
[2023-10-10 03:55] LABS: Basophils # (auto) 0 10 ^3/uL (0-0.2); Basophils % (auto) 0.1 % (0.0-2.0); Eosinophils # (auto) 0 10 ^3/uL (0-0.8); Lymphocytes # (auto) 0.7 10 ^3/uL (0.4-5.4); Lymphocytes % (auto) 4.7 % (10.0-50.0); Monocytes # (auto) 0.9 10 ^3/uL (0-1.3); Monocytes % (auto) 5.9 % (0.0-12.0)
[2023-10-10 03:59] LABS: Eosinophils % (auto) 0.3 % (0.0-7.0); Hematocrit 21.4 % (41.0-53.0); Hemoglobin 7.1 g/dL (13.5-17.5); Mean Corpuscular Hemoglobin 31.6 pg (28.0-32.0); Mean Corpuscular Hgb Conc. 33.3 g/dL (32.0-36.0); Mean Corpuscular Volume 94.9 fL (80.0-100.0); Neutrophils # (auto) 13.8 10 ^3/uL (1.6-8.6); Nucleated Red Blood Cells % 0.1 %; Red Blood Cells 2.25 10^6/uL (4.5-5.90); White Blood Cell 15.5 10^3/uL (4.4-10.8)
[2023-10-10 04:01] LABS: Alanine Aminotransferase 30 U/L (7-40); Alkaline Phosphatase 157 U/L (46-116); Aspartate Aminotransferase 71 U/L (13-40); BUN/Creatinine Ratio 10.3 (10.0-20.0); Calcium 8.2 mg/dL (8.5-10.1); Chloride 99 mmol/L (98-107); Glucose 143 mg/dL (74-106); Potassium 5.4 mmol/L (3.5-5.1); Sodium 136 mmol/L (136-145)
[2023-10-10 04:02] LABS: Albumin 2.9 g/dL (3.2-4.8); Bilirubin, Total 2.5 mg/dL (0.2-1.0); Total Protein 6.9 g/dL (5.7-8.2)
[2023-10-10 04:06] LABS: Anion Gap 8 (5-15); Carbon Dioxide 29 mmol/L (20-30)
[2023-10-10 04:09] LABS: INR 1.3 (0.9-1.15); Partial Thromboplastin Time 39.6 SEC (24.5-34.5); Prothrombin Time 13.4 sec (9.3-11.8); Red Cell Distribution Width 22.1 % (11.8-14.3)
[2023-10-10 04:10] LABS: CRP High Sensitivity > 20.00 mg/dL (<1.0)
[2023-10-10 04:13] LABS: Lactic Acid w/Reflex 2.6 mmol/L (0.4-2.0)
[2023-10-10 04:15] LABS: Blood Urea Nitrogen 53 mg/dL (9-23)
[2023-10-10] MEDS: NOREPINEPHRINE BITARTRATE 32 MG in SODIUM CHL 0.9% 218 ML IV SCH ×2 (04:30→12:25)
[2023-10-10] MEDS: AMIODARONE 450mg/250ml AE 250 ML IV SCH ×2 (05:00→15:03)
[2023-10-10 05:38] LABS: Magnesium 2.1 mg/dL (1.6-2.6)
[2023-10-10] MEDS: FUROSEMIDE 100 MG/10ML VIAL IV SCH ×2 (05:47→18:38)
[2023-10-10] MEDS: InsuLIN REG 1unit/0.01ml Soln (100units/ml) SC SCH ×4 (05:51→23:50)
[2023-10-10] MEDS: ACCU-CHEK COMFORT CURVE STRIP VI SCH ×4 (05:51→23:44)
[2023-10-10] MEDS: PHENYLEPHRINE INJ 80 MG in SODIUM CHL 0.9% 242 ML IV SCH (06:45)
[2023-10-10] MEDS: IPRATROPIUM BROM 0.5 MG/2.5ML INH SOL NEB SCH ×3 (06:58→19:18)
[2023-10-10] MEDS ORDERED: cefTRIAXone 1GM/50ML D5W 50 ML IV ONE (12:45)
[2023-10-10] MEDS ORDERED: SODIUM CHL 0.9% 1000 ML BAG XX ONE (12:45)
[2023-10-10] MEDS ORDERED: CLINIMIX PER PHARMACY 0 ML IV SCH (12:45)
[2023-10-10] MEDS: IRON SUCROSE COMPLEX 100 ML IV SCH (12:58)
[2023-10-10] MEDS: HYDROCORTISONE SOD SUCC 100 MG/2ML INJ VIAL IV SCH ×2 (13:43→21:21)
[2023-10-10] MEDS ORDERED: GLYCERIN ADULT RECTAL SUPP PR ONE (15:15)
[2023-10-10] MEDS ORDERED: DEXTROSE (50%) 50ML SYRG IV SCH (16:00)
[2023-10-10] MEDS ORDERED: EPOETIN ALFA-EPBX 10,000 UNIT/1ML VIAL SC ONE (21:00)
[2023-10-10] MEDS: PANTOPRAZOLE 40 MG/10 ML VIAL INJ IV SCH (21:11)
[2023-10-10] MEDS: AMINO ACID INFUSION IN D10W 1,000 ML IV SCH (21:12)
[2023-10-10] MEDS ORDERED: MEROPENEM 1GM IVPB 50 ML IV SCH (22:00)
[2023-10-11] VITALS (108 sets, daily range): BP systolic 85–127; BP diastolic 43–72; PULSE 83–110; RESP 7–20; TEMP 97.9–98.8; O2SAT 95–100
[2023-10-11] MEDS: VASOPRESSIN 20 UNITS in SODIUM CHL 0.9% 99 ML IV SCH ×3 (00:35→22:49)
[2023-10-11 03:57] LABS: Hemoglobin 8.4 g/dL (13.5-17.5)
[2023-10-11 04:00] LABS: Mean Corpuscular Hemoglobin 31.2 pg (28.0-32.0); Mean Corpuscular Hgb Conc. 33.6 g/dL (32.0-36.0); Mean Corpuscular Volume 92.7 fL (80.0-100.0); Red Blood Cells 2.69 10^6/uL (4.5-5.90); White Blood Cell 15.5 10^3/uL (4.4-10.8)
[2023-10-11 04:06] LABS: Red Cell Distribution Width 20.4 % (11.8-14.3)
[2023-10-11 04:07] LABS: Band Neutrophils % (manual) 0; Basophils % (manual) 0 (0.0-2.0); Blast Cells 0; Eosinophils % (manual) 0 (0-7); Metamyelocytes % 0; Promyelocytes % 0; Reactive Lymphocytes 0
[2023-10-11 04:16] LABS: Alanine Aminotransferase 27 U/L (7-40); Albumin 2.8 g/dL (3.2-4.8); Alkaline Phosphatase 224 U/L (46-116); Anion Gap 5 (5-15); Aspartate Aminotransferase 62 U/L (13-40); BUN/Creatinine Ratio 12.4 (10.0-20.0); Blood Urea Nitrogen 50 mg/dL (9-23); Calcium 8.1 mg/dL (8.7-10.4); Carbon Dioxide 30 mmol/L (20-30); Chloride 102 mmol/L (98-107); Glucose 161 mg/dL (74-106); Potassium 4.6 mmol/L (3.5-5.1); Sodium 137 mmol/L (136-145)
[2023-10-11 04:17] LABS: Bilirubin, Total 2.2 mg/dL (0.2-1.0); Phosphorus 4.2 mg/dL (2.4-5.1)
[2023-10-11 04:56] LABS: Lymphocytes % (manual) 3 (10.0-50.0); Monocytes % (manual) 5 (0-12); Myelocytes % 1; Platelet Estimate Decreased
[2023-10-11] MEDS: FUROSEMIDE 100 MG/10ML VIAL IV SCH ×2 (06:19→17:41)
[2023-10-11] MEDS: InsuLIN REG 1unit/0.01ml Soln (100units/ml) SC SCH ×4 (06:22→23:44)
[2023-10-11] MEDS: ACCU-CHEK COMFORT CURVE STRIP VI SCH ×4 (06:23→23:44)
[2023-10-11] MEDS: PHENYLEPHRINE INJ 80 MG in SODIUM CHL 0.9% 242 ML IV SCH (06:45)
[2023-10-11] MEDS: IPRATROPIUM BROM 0.5 MG/2.5ML INH SOL NEB SCH ×3 (06:50→18:44)
[2023-10-11] MEDS ORDERED: SODIUM CHL 0.9% 1000 ML BAG XX ONE (07:00)
[2023-10-11] MEDS ORDERED: cefTRIAXone 1GM/50ML D5W 50 ML IV SCH (09:00)
[2023-10-11] MEDS: PANTOPRAZOLE 40 MG/10 ML VIAL INJ IV SCH ×2 (10:26→21:38)
[2023-10-11] MEDS: HYDROCORTISONE SOD SUCC 100 MG/2ML INJ VIAL IV SCH ×2 (10:27→21:39)
[2023-10-11] MEDS: ALBUMIN 25% 50 ML IV PRN ×2 (10:42→11:50)
[2023-10-11] MEDS ORDERED: ALBUMIN 25% 50 ML IV ONE (10:47)
[2023-10-11] MEDS: IRON SUCROSE COMPLEX 100 ML IV SCH (12:30)
[2023-10-11] MEDS: AMIODARONE 450mg/250ml AE 250 ML IV SCH (17:50)
[2023-10-11] MEDS: ALBUTEROL SULF 2.5 MG/0.5ML(0.5%) NEB SOLN NEB PRN (18:44)
[2023-10-11] MEDS: AMINO ACID INFUSION IN D10W 1,000 ML IV SCH (20:10)
[2023-10-11] MEDS ORDERED: EPOETIN ALFA-EPBX 10,000 UNIT/1ML VIAL SC ONE (21:00)
[2023-10-11] MEDS: MEROPENEM 500MG IVPB 50 ML IV SCH (21:39)
[2023-10-12] VITALS (105 sets, daily range): BP systolic 89–134; BP diastolic 39–78; PULSE 50–107; RESP 8–26; TEMP 97.5–98.2; O2SAT 88–100
[2023-10-12 03:43] LABS: Hematocrit 24.6 % (41.0-53.0); Hemoglobin 8.2 g/dL (13.5-17.5); Mean Corpuscular Hemoglobin 30.9 pg (28.0-32.0); Mean Corpuscular Hgb Conc. 33.4 g/dL (32.0-36.0)
[2023-10-12 03:46] LABS: Mean Corpuscular Volume 92.4 fL (80.0-100.0); Red Blood Cells 2.66 10^6/uL (4.5-5.90); Red Cell Distribution Width 19.9 % (11.8-14.3)
[2023-10-12 03:57] LABS: Basophils % (manual) 0 (0.0-2.0); Blast Cells 0; Eosinophils % (manual) 0 (0-7); Metamyelocytes % 0; Promyelocytes % 0; Reactive Lymphocytes 0
[2023-10-12 03:59] LABS: Alanine Aminotransferase 23 U/L (7-40); Albumin 2.9 g/dL (3.2-4.8); Alkaline Phosphatase 178 U/L (46-116); Anion Gap 7 (5-15); Aspartate Aminotransferase 47 U/L (13-40); BUN/Creatinine Ratio 12.8 (10.0-20.0); Blood Urea Nitrogen 42 mg/dL (9-23); Calcium 8.4 mg/dL (8.7-10.4); Carbon Dioxide 29 mmol/L (20-30); Chloride 102 mmol/L (98-107); Glucose 153 mg/dL (74-106); Phosphorus 3.7 mg/dL (2.4-5.1); Potassium 3.9 mmol/L (3.5-5.1); Sodium 138 mmol/L (136-145); Total Protein 6.8 g/dL (5.7-8.2)
[2023-10-12 04:26] LABS: Anisocytosis Slight; Band Neutrophils % (manual) 13; Lymphocytes % (manual) 4 (10.0-50.0); Monocytes % (manual) 6 (0-12); Myelocytes % 7; Platelet Estimate Decreased
[2023-10-12 04:27] LABS: Large Platelets FEW
[2023-10-12] MEDS: IPRATROPIUM BROM 0.5 MG/2.5ML INH SOL NEB SCH ×3 (06:04→18:37)
[2023-10-12] MEDS: InsuLIN REG 1unit/0.01ml Soln (100units/ml) SC SCH ×3 (06:13→18:00)
[2023-10-12] MEDS: ACCU-CHEK COMFORT CURVE STRIP VI SCH ×3 (06:13→18:27)
[2023-10-12] MEDS: AMIODARONE 450mg/250ml AE 250 ML IV SCH ×2 (06:13→17:00)
[2023-10-12] MEDS: FUROSEMIDE 100 MG/10ML VIAL IV SCH ×2 (06:14→17:33)
[2023-10-12] MEDS: PHENYLEPHRINE INJ 80 MG in SODIUM CHL 0.9% 242 ML IV SCH (06:14)
[2023-10-12] MEDS ORDERED: SODIUM CHL 0.9% 1000 ML BAG XX ONE (07:00)
[2023-10-12] MEDS: VASOPRESSIN 20 UNITS in SODIUM CHL 0.9% 99 ML IV SCH (07:28)
[2023-10-12] MEDS: NOREPINEPHRINE BITARTRATE 32 MG in SODIUM CHL 0.9% 218 ML IV SCH ×2 (07:28→17:29)
[2023-10-12] MEDS: PANTOPRAZOLE 40 MG/10 ML VIAL INJ IV SCH ×2 (09:56→21:07)
[2023-10-12] MEDS ORDERED: ALBUMIN 25% 100 ML IV ONE ×2 (12:00)
[2023-10-12] MEDS ORDERED: ALBUMIN 25% 0 ML IV ONE (12:04)
[2023-10-12] MEDS: IRON SUCROSE COMPLEX 100 ML IV SCH (12:53)
[2023-10-12] MEDS ORDERED: ATROPINE SULFATE 1 MG/1 ML VIAL ONE (14:12)
[2023-10-12] MEDS: ALBUTEROL SULF 2.5 MG/0.5ML(0.5%) NEB SOLN NEB PRN (18:37)
[2023-10-12] MEDS: AMINO ACID INFUSION IN D10W 1,000 ML IV SCH (20:47)
[2023-10-12] MEDS ORDERED: EPOETIN ALFA-EPBX 4,000 UNIT/ML VIAL SC ONE (21:00)
[2023-10-12] MEDS: MEROPENEM 500MG IVPB 50 ML IV SCH (21:06)
[2023-10-12] MEDS: AMIODARONE HCL 200 MG TAB PO SCH (23:48)
[2023-10-13] VITALS (102 sets, daily range): BP systolic 92–118; BP diastolic 40–58; PULSE 53–99; RESP 10–21; TEMP 97.4–98.4; O2SAT 87–100
[2023-10-13 04:17] LABS: Hemoglobin 7.4 g/dL (13.5-17.5)
[2023-10-13 04:20] LABS: Hematocrit 21.9 % (41.0-53.0); Mean Corpuscular Hemoglobin 31.3 pg (28.0-32.0); Mean Corpuscular Hgb Conc. 33.6 g/dL (32.0-36.0); Mean Corpuscular Volume 93.1 fL (80.0-100.0); Red Blood Cells 2.36 10^6/uL (4.5-5.90); Red Cell Distribution Width 19.8 % (11.8-14.3); White Blood Cell 14.2 10^3/uL (4.4-10.8)
[2023-10-13 04:29] LABS: Basophils % (manual) 0 (0.0-2.0); Blast Cells 0; Promyelocytes % 0; Reactive Lymphocytes 0
[2023-10-13 04:45] LABS: Alanine Aminotransferase 19 U/L (7-40); Albumin 3.1 g/dL (3.2-4.8); Alkaline Phosphatase 150 U/L (46-116); Anion Gap 7 (5-15); Aspartate Aminotransferase 39 U/L (13-40); BUN/Creatinine Ratio 13.9 (10.0-20.0); Blood Urea Nitrogen 41 mg/dL (9-23); Calcium 8.6 mg/dL (8.7-10.4); Carbon Dioxide 30 mmol/L (20-30); Chloride 102 mmol/L (98-107); Glucose 105 mg/dL (74-106); Magnesium 1.9 mg/dL (1.6-2.6); Potassium 3.3 mmol/L (3.5-5.1); Sodium 139 mmol/L (136-145)
[2023-10-13 04:46] LABS: Phosphorus 2.4 mg/dL (2.4-5.1); Total Protein 6.5 g/dL (5.7-8.2)
[2023-10-13 05:25] LABS: CRP High Sensitivity 6.91 mg/dL (<1.0)
[2023-10-13] MEDS: FUROSEMIDE 100 MG/10ML VIAL IV SCH ×2 (05:25→18:00)
[2023-10-13] MEDS: ACCU-CHEK COMFORT CURVE STRIP VI SCH ×5 (05:25→23:57)
[2023-10-13] MEDS: InsuLIN REG 1unit/0.01ml Soln (100units/ml) SC SCH ×5 (05:25→23:57)
[2023-10-13 05:42] LABS: Anisocytosis Slight; Band Neutrophils % (manual) 9; Eosinophils % (manual) 1 (0-7); Lymphocytes % (manual) 6 (10.0-50.0); Metamyelocytes % 1; Monocytes % (manual) 8 (0-12); Myelocytes % 1; Ovalocytes FEW; Platelet Estimate Adequate
[2023-10-13 05:43] LABS: Large Platelets FEW
[2023-10-13] MEDS: IPRATROPIUM BROM 0.5 MG/2.5ML INH SOL NEB SCH ×3 (06:16→18:23)
[2023-10-13] MEDS: PHENYLEPHRINE INJ 80 MG in SODIUM CHL 0.9% 242 ML IV SCH (06:45)
[2023-10-13] MEDS ORDERED: POTASSIUM EFFERVESENT TAB 25 MEQ PO ONE (07:00)
[2023-10-13] MEDS: VASOPRESSIN 20 UNITS in SODIUM CHL 0.9% 99 ML IV SCH ×2 (08:01→19:17)
[2023-10-13] MEDS: PANTOPRAZOLE 40 MG/10 ML VIAL INJ IV SCH ×2 (09:14→21:03)
[2023-10-13] MEDS: AMIODARONE HCL 200 MG TAB PO SCH ×2 (09:15→21:03)
[2023-10-13] MEDS: IRON SUCROSE COMPLEX 100 ML IV SCH (12:38)
[2023-10-13] MEDS ORDERED: POTASSIUM PHOSPHATE 22 MEQ in SODIUM CHL 0.9% 100 ML IV ONE (15:00)
[2023-10-13] MEDS: ALBUTEROL SULF 2.5 MG/0.5ML(0.5%) NEB SOLN NEB PRN (18:23)
[2023-10-13] MEDS: AMINO ACID INFUSION IN D10W 1,000 ML IV SCH (20:20)
[2023-10-13] MEDS: MORPHINE SULFATE INJ 2 MG/ml SYRG IV PRN (20:21)
[2023-10-13] MEDS: MEROPENEM 500MG IVPB 50 ML IV SCH (21:03)
[2023-10-14] VITALS (96 sets, daily range): BP systolic 82–175; BP diastolic 37–99; PULSE 67–98; RESP 9–26; TEMP 97.4–98.8; O2SAT 87–100
[2023-10-14 04:01] LABS: Hematocrit 23.1 % (41.0-53.0); Hemoglobin 7.7 g/dL (13.5-17.5); Mean Corpuscular Hemoglobin 31.4 pg (28.0-32.0); Mean Corpuscular Hgb Conc. 33.4 g/dL (32.0-36.0); Mean Corpuscular Volume 93.8 fL (80.0-100.0); Red Blood Cells 2.47 10^6/uL (4.5-5.90); Red Cell Distribution Width 19.5 % (11.8-14.3); White Blood Cell 20.9 10^3/uL (4.4-10.8)
[2023-10-14 04:12] LABS: Alanine Aminotransferase 20 U/L (7-40); Albumin 2.9 g/dL (3.2-4.8); Alkaline Phosphatase 205 U/L (46-116); Anion Gap 7 (5-15); Aspartate Aminotransferase 48 U/L (13-40); BUN/Creatinine Ratio 13.1 (10.0-20.0); Calcium 8.4 mg/dL (8.5-10.1); Carbon Dioxide 27 mmol/L (20-30); Chloride 100 mmol/L (98-107); Glucose 111 mg/dL (74-106)
[2023-10-14 04:13] LABS: Bilirubin, Total 2.3 mg/dL (0.2-1.0); Phosphorus 2.9 mg/dL (2.4-5.1); Total Protein 6.8 g/dL (5.7-8.2)
[2023-10-14 04:14] LABS: Basophils % (manual) 0 (0.0-2.0); Blast Cells 0; Monocytes % (manual) 0 (0-12); Promyelocytes % 0; Reactive Lymphocytes 0
[2023-10-14 04:21] LABS: CRP High Sensitivity 7.93 mg/dL (<1.0)
[2023-10-14 04:22] LABS: Blood Urea Nitrogen 55 mg/dL (9-23); Sodium 134 mmol/L (136-145)
[2023-10-14] MEDS: NOREPINEPHRINE BITARTRATE 32 MG in SODIUM CHL 0.9% 218 ML IV SCH (04:30)
[2023-10-14 04:33] LABS: Magnesium 1.7 mg/dL (1.6-2.6)
[2023-10-14 05:00] LABS: Anisocytosis Slight; Band Neutrophils % (manual) 10; Eosinophils % (manual) 4 (0-7); Large Platelets FEW; Lymphocytes % (manual) 5 (10.0-50.0); Metamyelocytes % 1; Myelocytes % 3; Ovalocytes FEW; Platelet Estimate Adequate
[2023-10-14] MEDS: InsuLIN REG 1unit/0.01ml Soln (100units/ml) SC SCH ×3 (06:00→18:00)
[2023-10-14] MEDS: VASOPRESSIN 20 UNITS in SODIUM CHL 0.9% 99 ML IV SCH ×2 (06:24→14:57)
[2023-10-14] MEDS ORDERED: ALBUMIN 25% 100 ML IV ONE ×2 (06:30→06:45)
[2023-10-14] MEDS: ACCU-CHEK COMFORT CURVE STRIP VI SCH ×3 (06:35→18:06)
[2023-10-14] MEDS: ALBUTEROL SULF 2.5 MG/0.5ML(0.5%) NEB SOLN NEB PRN ×2 (06:42→18:40)
[2023-10-14] MEDS: IPRATROPIUM BROM 0.5 MG/2.5ML INH SOL NEB SCH ×3 (06:42→18:40)
[2023-10-14] MEDS: PHENYLEPHRINE INJ 80 MG in SODIUM CHL 0.9% 242 ML IV SCH (06:45)
[2023-10-14] MEDS ORDERED: SODIUM CHL 0.9% 1000 ML BAG XX ONE (07:00)
[2023-10-14] MEDS: MORPHINE SULFATE INJ 2 MG/ml SYRG IV PRN ×3 (07:01→20:00)
[2023-10-14] MEDS ORDERED: MIDODRINE HCL 10 MG TAB PO ONE (07:15)
[2023-10-14] MEDS: PANTOPRAZOLE 40 MG/10 ML VIAL INJ IV SCH ×2 (09:32→23:19)
[2023-10-14] MEDS: AMIODARONE HCL 200 MG TAB PO SCH ×2 (09:33→22:00)
[2023-10-14 09:38] LABS: INR 1.38 (0.9-1.15); Prothrombin Time 14.2 sec (9.3-11.8)
[2023-10-14] MEDS: IRON SUCROSE COMPLEX 100 ML IV SCH (12:00)
[2023-10-14] MEDS: MIDODRINE HCL 10 MG TAB PO SCH ×2 (12:36→17:53)
[2023-10-14] MEDS: AMINO ACID INFUSION IN D10W 1,000 ML IV SCH (19:59)
[2023-10-14] MEDS ORDERED: EPOETIN ALFA-EPBX 10,000 UNIT/1ML VIAL SC ONE (21:00)
[2023-10-14] MEDS: MEROPENEM 500MG IVPB 50 ML IV SCH (23:19)
[2023-10-15] VITALS (51 sets, daily range): BP systolic 118–155; BP diastolic 34–77; PULSE 72–99; RESP 14–37; TEMP 98.1–99.9; O2SAT 96–100
[2023-10-15] MEDS: NOREPINEPHRINE BITARTRATE 32 MG in SODIUM CHL 0.9% 218 ML IV SCH (04:30)
[2023-10-15] MEDS: VASOPRESSIN 20 UNITS in SODIUM CHL 0.9% 99 ML IV SCH (04:38)
[2023-10-15 05:15] LABS: Hemoglobin 7.2 g/dL (13.5-17.5); Mean Corpuscular Volume 93.9 fL (80.0-100.0)
[2023-10-15 05:16] LABS: Hematocrit 21.8 % (41.0-53.0); Red Blood Cells 2.32 10^6/uL (4.5-5.90); Red Cell Distribution Width 19.7 % (11.8-14.3); White Blood Cell 22.2 10^3/uL (4.4-10.8)
[2023-10-15 05:27] LABS: Alanine Aminotransferase 15 U/L (7-40); Alkaline Phosphatase 191 U/L (46-116); Anion Gap 8 (5-15); Aspartate Aminotransferase 34 U/L (13-40); BUN/Creatinine Ratio 11.4 (10.0-20.0); Calcium 8.5 mg/dL (8.7-10.4); Carbon Dioxide 24 mmol/L (20-30); Chloride 103 mmol/L (98-107); GFR African American 19 mL/min; GFR Non-African American 16 mL/min; Glucose 110 mg/dL (74-106); Magnesium 1.7 mg/dL (1.6-2.6); Phosphorus 2.3 mg/dL (2.4-5.1); Potassium 4.3 mmol/L (3.5-5.1); Sodium 135 mmol/L (136-145)
[2023-10-15 05:28] LABS: Bilirubin, Total 3.2 mg/dL (0.2-1.0); Total Protein 6.9 g/dL (5.7-8.2)
[2023-10-15 05:30] LABS: Blood Urea Nitrogen 44 mg/dL (9-23)
[2023-10-15 05:39] LABS: Basophils % (manual) 0 (0.0-2.0); Blast Cells 0; Eosinophils % (manual) 0 (0-7); Metamyelocytes % 0; Myelocytes % 0; Promyelocytes % 0; Reactive Lymphocytes 0
[2023-10-15] MEDS: MIDODRINE HCL 10 MG TAB PO SCH (05:49)
[2023-10-15] MEDS: InsuLIN REG 1unit/0.01ml Soln (100units/ml) SC SCH ×4 (05:50→18:30)
[2023-10-15] MEDS: ACCU-CHEK COMFORT CURVE STRIP VI SCH ×4 (05:50→18:30)
[2023-10-15] MEDS: PHENYLEPHRINE INJ 80 MG in SODIUM CHL 0.9% 242 ML IV SCH (05:54)
[2023-10-15 06:28] LABS: CRP High Sensitivity 12.89 mg/dL (<1.0)
[2023-10-15] MEDS: IPRATROPIUM BROM 0.5 MG/2.5ML INH SOL NEB SCH ×3 (06:29→19:14)
[2023-10-15 08:35] LABS: Band Neutrophils % (manual) 8; Lymphocytes % (manual) 8 (10.0-50.0); Monocytes % (manual) 4 (0-12); Platelet Estimate Adequate
[2023-10-15] MEDS: AMIODARONE HCL 200 MG TAB PO SCH ×2 (08:42→21:30)
[2023-10-15] MEDS: PANTOPRAZOLE 40 MG/10 ML VIAL INJ IV SCH ×2 (08:43→21:30)
[2023-10-15] MEDS ORDERED: SODIUM PHOSPHATES 20 MEQ in SODIUM CHL 0.9% 100 ML IV ONE (11:15)
[2023-10-15] MEDS: IRON SUCROSE COMPLEX 100 ML IV SCH (11:44)
[2023-10-15] MEDS: ALBUTEROL SULF 2.5 MG/0.5ML(0.5%) NEB SOLN NEB PRN (19:14)
[2023-10-15] MEDS: AMINO ACID INFUSION IN D10W 1,000 ML IV SCH (21:24)
[2023-10-15] MEDS: MEROPENEM 500MG IVPB 50 ML IV SCH (21:30)
[2023-10-16] VITALS (11 sets, daily range): BP systolic 122–137; BP diastolic 26–61; PULSE 77–90; RESP 18–24; TEMP 97.7–98.7; O2SAT 87–100
[2023-10-16] MEDS: ACCU-CHEK COMFORT CURVE STRIP VI SCH ×3 (00:07→11:46)
[2023-10-16] MEDS: ALBUTEROL SULF 2.5 MG/0.5ML(0.5%) NEB SOLN NEB PRN ×2 (00:20→12:47)
[2023-10-16 06:33] LABS: Eosinophils # (auto) 0.1 10 ^3/uL (0-0.8); Lymphocytes # (auto) 0.8 10 ^3/uL (0.4-5.4); Lymphocytes % (auto) 4.4 % (10.0-50.0)
[2023-10-16 06:36] LABS: Basophils # (auto) 0.1 10 ^3/uL (0-0.2); Basophils % (auto) 0.3 % (0.0-2.0); Eosinophils % (auto) 0.7 % (0.0-7.0); Hematocrit 20.4 % (41.0-53.0); Mean Corpuscular Hemoglobin 31.7 pg (28.0-32.0); Mean Corpuscular Hgb Conc. 33.2 g/dL (32.0-36.0); Mean Corpuscular Volume 95.7 fL (80.0-100.0); Monocytes # (auto) 0.9 10 ^3/uL (0-1.3); Monocytes % (auto) 4.9 % (0.0-12.0); Neutrophils # (auto) 16.5 10 ^3/uL (1.6-8.6); Neutrophils % (auto) 89.7 % (37.0-80.0); Nucleated Red Blood Cells % 0.9 %; Red Blood Cells 2.13 10^6/uL (4.5-5.90); Red Cell Distribution Width 19.9 % (11.8-14.3); White Blood Cell 18.4 10^3/uL (4.4-10.8)
[2023-10-16 06:40] LABS: Alanine Aminotransferase 13 U/L (7-40); Albumin 2.9 g/dL (3.2-4.8); Alkaline Phosphatase 184 U/L (46-116); Anion Gap 10 (5-15); Aspartate Aminotransferase 30 U/L (13-40); BUN/Creatinine Ratio 11.5 (10.0-20.0); Bilirubin, Total 3.3 mg/dL (0.2-1.0); Calcium 8.4 mg/dL (8.7-10.4); Carbon Dioxide 22 mmol/L (20-30); Chloride 103 mmol/L (98-107); GFR African American 13 mL/min; GFR Non-African American 11 mL/min; Glucose 87 mg/dL (74-106); Phosphorus 4.2 mg/dL (2.4-5.1); Potassium 4.6 mmol/L (3.5-5.1); Sodium 135 mmol/L (136-145)
[2023-10-16 06:41] LABS: Total Protein 7.1 g/dL (5.7-8.2)
[2023-10-16 06:44] LABS: Blood Urea Nitrogen 61 mg/dL (9-23)
[2023-10-16] MEDS ORDERED: SODIUM CHL 0.9% 1000 ML BAG XX ONE (07:00)
[2023-10-16] MEDS: InsuLIN REG 1unit/0.01ml Soln (100units/ml) SC SCH ×3 (07:05→11:49)
[2023-10-16 07:30] LABS: Hemoglobin 6.8 g/dL (13.5-17.5)
[2023-10-16] MEDS: IPRATROPIUM BROM 0.5 MG/2.5ML INH SOL NEB SCH ×2 (08:01→12:47)
[2023-10-16] MEDS: AMIODARONE HCL 200 MG TAB PO SCH (09:09)
[2023-10-16] MEDS: PANTOPRAZOLE 40 MG/10 ML VIAL INJ IV SCH (09:09)
[2023-10-16] MEDS: IRON SUCROSE COMPLEX 100 ML IV SCH (11:46)
[2023-10-16] MEDS ORDERED: EPOETIN ALFA-EPBX 10,000 UNIT/1ML VIAL SC ONE (21:00)
== END 2023-10-16 15:00 | disposition hospice, home (50) | DRG 871 ==
LOC: EDBD 11:39 → ER 11:39 → TELE 18:37 → ICU WEST 10-08 05:23 → DOU IN ICU 10-14 14:36 → ICU CENTRL 10-15 06:10 → TELE-WESTW 10-15 15:16
PROVIDERS: ADMIT Internal Medicine; ATTEND Emergency Medicine
PROC: 5A1D70Z Performance of Urinary Filtration, Intermittent, Less than 6 Hours Per Day (ICD-10-PCS; 2023-10-08)
PROC: 06HY33Z Insertion of Infusion Device into Lower Vein, Percutaneous Approach (ICD-10-PCS; 2023-10-08)
PROC: 30233N1 Transfusion of Nonautologous Red Blood Cells into Peripheral Vein, Percutaneous Approach (ICD-10-PCS; principal; 2023-10-09)
PROC: 5A1D70Z Performance of Urinary Filtration, Intermittent, Less than 6 Hours Per Day (ICD-10-PCS; 2023-10-09)
PROC: 5A2204Z Restoration of Cardiac Rhythm, Single (ICD-10-PCS; 2023-10-09)
PROC: 5A1D70Z Performance of Urinary Filtration, Intermittent, Less than 6 Hours Per Day (ICD-10-PCS; 2023-10-10)
PROC: 5A1D70Z Performance of Urinary Filtration, Intermittent, Less than 6 Hours Per Day (ICD-10-PCS; 2023-10-11)
PROC: 5A1D70Z Performance of Urinary Filtration, Intermittent, Less than 6 Hours Per Day (ICD-10-PCS; 2023-10-12)
PROC: 5A1D70Z Performance of Urinary Filtration, Intermittent, Less than 6 Hours Per Day (ICD-10-PCS; 2023-10-14)
DX: A41.51 Sepsis due to Escherichia coli [E. coli] (principal); I21.A1 Myocardial infarction type 2; I50.23 Acute on chronic systolic (congestive) heart failure; N18.6 End stage renal disease; R65.21 Severe sepsis with septic shock; J15.4 Pneumonia due to other streptococci; J96.21 Acute and chronic respiratory failure with hypoxia; R57.1 Hypovolemic shock; J69.0 Pneumonitis due to inhalation of food and vomit; I13.2 Hypertensive heart and chronic kidney disease with heart failure and with stage 5 chronic kidney disease, or end stage renal disease; E87.29 Other acidosis; E87.21 Acute metabolic acidosis; N39.0 Urinary tract infection, site not specified; I42.0 Dilated cardiomyopathy; I48.92 Unspecified atrial flutter; I47.10 Supraventricular tachycardia, unspecified; G89.29 Other chronic pain; F03.90 Unspecified dementia, unspecified severity, without behavioral disturbance, psychotic disturbance, mood disturbance, and anxiety; D63.1 Anemia in chronic kidney disease; E11.22 Type 2 diabetes mellitus with diabetic chronic kidney disease; E21.1 Secondary hyperparathyroidism, not elsewhere classified; I25.10 Atherosclerotic heart disease of native coronary artery without angina pectoris; E87.5 Hyperkalemia; I48.91 Unspecified atrial fibrillation; D69.6 Thrombocytopenia, unspecified; I44.0 Atrioventricular block, first degree; I34.0 Nonrheumatic mitral (valve) insufficiency; Z99.2 Dependence on renal dialysis; I25.2 Old myocardial infarction; Z87.440 Personal history of urinary (tract) infections
CPT/HCPCS: 36415; 36600; 71045; 71250; 73502; 73562; 74018; 76604; 76937; 80053; 80061; 80069; 80074; 80202; 80307; 81001; 82140; 82270; 82306; 82607; 82746; 82805; 82962; 83036; 83540; 83550; 83605; 83615; 83735; 84100; 84132; 84443; 84484; 84550; 85007; 85014; 85018; 85025; 85027; 85610; 85730; 86141; 86850; 86900; 86901; 86920; 87040; 87070; 87077; 87081; 87086; 87088; 87186; 87205; 90935; 92610; 92960; 93005; 93306; 93970; 94640; C9113; G0378; J0153; J0461; J1756; J1815; J2185; J2250; J2405; P9047